=== PATIENT | female | born 1990 | race Caucasian/White ===

== ENCOUNTER 2017-05-18 04:47 | Inpatient (IN) | payer OTHER ==
[2017-05-18] VITALS (11 sets, daily range): BP systolic 108–155; BP diastolic 77–126
[~2017-05-18] VITALS: Ht 165.1 cm; Wt 64.0 kg
[2017-05-18] MEDS ORDERED: ondansetron/PF 4mg/2ml inj IV ONE (05:00)
[2017-05-18] MEDS ORDERED: HYDROmorphone inj. 0.5 MG/0.5 ML DISP.SYRIN IV PRN (05:00)
[2017-05-18] MEDS ORDERED: normal saline 1000ML IV soln IVB ONE ×2 (05:00→08:05)
[2017-05-18] MEDS ORDERED: morphine 4 MG/ML inj SYRINge IV ONE (05:05)
[2017-05-18 05:43] LABS: BASOPHILS # (AUTO) 0.1 X10'3 (0-0.2); BASOPHILS % (AUTO) 0.4 % (0-1); EOSINOPHILS # (AUTO) 0.3 X10'3 (0-0.9); EOSINOPHILS % (AUTO) 2.1 % (0-6); HEMATOCRIT 37.3 % (35.0-45.0); HEMOGLOBIN 13.4 g/dl (12.0-16.0); LYMPHOCYTES # (AUTO) 0.8 X10'3 (1.1-4.8); LYMPHOCYTES % (AUTO) 6.3 % (21-51); MEAN CORPUSCULAR HEMOGLOBIN 32.9 PG (27.0-31.0); MEAN CORPUSCULAR HGB CONC 35.8 % (33.0-36.5); MEAN PLATELET VOLUME 8.6 FL (7.4-10.4); MONOCYTES # (AUTO) 0.7 X10'3 (0-0.9); MONOCYTES % (AUTO) 5.3 % (2-12); NEUTROPHILS # (AUTO) 11.3 X10'3 (1.8-7.7); NEUTROPHILS % (AUTO) 85.9 % (42-75); PLATELET COUNT 194 X10'3 (140-440); RED BLOOD COUNT 4.05 X10'6 (4.20-5.60); RED CELL DISTRIBUTION WIDTH 12.6 % (11.5-14.5); WHITE BLOOD COUNT 13.2 X10'3 (4.5-11.0)
[2017-05-18 05:51] LABS: CLARITY,URINE SLIGHTLY CLOUDY (Clear); COLOR,URINE YELLOW (Yellow); GLUCOSE, URINE NEGATIVE (Neg); KETONES,URINE 40 mg/dl (Neg); LEUKOCYTE ESTERASE ,URINE NEGATIVE (Neg); NITRITES, URINE NEGATIVE (Neg); OCCULT BLOOD,URINE NEGATIVE (Neg); PH,URINE 6.5 (4.8-8.0); PROTEIN,URINE 30 mg/dl (Neg)
[2017-05-18 05:55] LABS: UA COLLECTION TYPE CLN CATCH MIDSTREAM
[2017-05-18 06:00] LABS: BACTERIA,URINE 2+ /HPF (Neg); MUCUS STRANDS FEW /LPF (Neg); RBC,URINE NONE SEEN /HPF (0-2); SQUAMOUS EPITHELIAL CELL,UR MANY /LPF (FEW); WBC,URINE 0-4 /HPF (0-4)
[2017-05-18 06:00] LABS: ALANINE AMINOTRANSFERASE 26 U/L (12-78); ALBUMIN 3.7 G/DL (3.4-5.0); ALBUMIN/GLOBULIN RATIO 0.9 (1.1-1.5); ALKALINE PHOSPHATASE 47 IU/L (46-116); ANION GAP 11 (8-16); ASPARTATE AMINO TRANSFERASE 19 U/L (10-37); BLOOD UREA NITROGEN 14 MG/DL (7-18); BUN/CREATININE RATIO 15.4 (6.6-38.0); CALCIUM 8.8 MG/DL (8.5-10.1); CHLORIDE 101 MMOL/L (99-107); CREATININE 0.91 MG/DL (0.40-0.90); GLUCOSE 122 MG/DL (70-104); LIPASE 132 U/L (73-393); POTASSIUM 3.7 MMOL/L (3.5-5.1); SODIUM 136 MMOL/L (135-145); TOTAL CARBON DIOXIDE 24.4 MMOL/L (24-32); TOTAL PROTEIN 7.8 G/DL (6.4-8.2); eGFR 75 ML/MIN
[2017-05-18 06:10] LABS: HCG SERUM QL NEGATIVE
[2017-05-18] MEDS ORDERED: iohexol 300mg/ml 100ml inj. ONE ×3 (06:26→06:39)
[2017-05-18] MEDS ORDERED: piperacillin/tazo 3.375gm/50ml 50 ML IV ONE (07:50)
[2017-05-18] MEDS ORDERED: normal saline 1000ml 1,000 ML IV ONE (08:02)
[2017-05-18] MEDS ORDERED: LORazepam 2 mg/ml vial IV ONE (10:40)
[2017-05-18] MEDS: morphine 4 MG/ML inj SYRINge IV PRN ×4 (10:59→19:38)
[2017-05-18] MEDS: piperacillin/tazo 3.375gm/50ml 50 ML IV SCH ×2 (15:07→23:22)
[2017-05-18] MEDS ORDERED: BUPIVAcaine/PF 2.5 mg/ml (0.25%) 30ml vial ONE (16:01)
[2017-05-18] MEDS ORDERED: LIDOcaine 1% 30ml preserv. free vial ONE (16:01)
[2017-05-18] MEDS ORDERED: ringers solution, lacted 1,000 ML IV SCH (18:46)
[2017-05-18] MEDS ORDERED: meperidine/PF 50mg/ml syringe IV PRN ×3 (18:50)
[2017-05-18] MEDS ORDERED: acetaminophen 1,000mg/100ml IV 100 ML IV PRN (18:50)
[2017-05-18] MEDS ORDERED: proCHLORperazine 10 MG/2 ml inj IV PRN (18:50)
[2017-05-18] MEDS ORDERED: morphine 4 MG/ML inj SYRINge IV PRN ×3 (18:50→23:15)
[2017-05-18] MEDS ORDERED: ondansetron/PF 4mg/2ml inj IV PRN (18:50)
[2017-05-18] MEDS ORDERED: fentaNYL/PF 50MCG/1 ML 2ML syringe ONE (19:30)
[2017-05-18] MEDS ORDERED: midazolam 2 mg/2 ml injection ONE (19:30)
[2017-05-18] MEDS ORDERED: propofol inj 20 ML IV ONE (19:33)
[2017-05-18] MEDS ORDERED: rocuronium 10mg/ml inj IV ONE (19:33)
[2017-05-18] MEDS ORDERED: LIDOcaine 2% 5ml jelly ONE (19:33)
[2017-05-18] MEDS ORDERED: desflurane 240ml liquid inh. IH ONE (19:45)
[2017-05-18] MEDS ORDERED: ceFOXitin 1000 MG inj ONE ×2 (20:10)
[2017-05-18] MEDS ORDERED: dexamethasone sod phosphate 4mg/ml inj. ONE (20:10)
[2017-05-18] MEDS ORDERED: ondansetron/PF 4mg/2ml inj ONE (20:10)
[2017-05-18] MEDS ORDERED: neostigmine methylsulfate 1 MG/ML 10ml vial ONE (20:50)
[2017-05-18] MEDS ORDERED: glycopyrrolate 0.2mg/ml inj ONE (20:50)
[2017-05-18] MEDS: ondansetron/PF 4mg/2ml inj IV PRN (21:43)
[2017-05-18] MEDS ORDERED: proMETHazine 25mg rectal suppository RC ONE (23:10)
[2017-05-19 00:15] VITALS: BP 144/71
[2017-05-19] MEDS: HYDROcodone/acetaminophen 5mg/325mg tablet PO PRN ×4 (00:19→21:49)
[2017-05-19] MEDS ORDERED: CIPR500T24 PO (00:33)
[2017-05-19 01:15] VITALS: BP 144/82
[2017-05-19 01:30] VITALS: BP 144/82
[2017-05-19] MEDS: piperacillin/tazo 3.375gm/50ml 50 ML IV SCH ×3 (02:00→15:01)
[2017-05-19] MEDS: ondansetron/PF 4mg/2ml inj IV PRN (05:33)
[2017-05-19 07:00] VITALS: BP 125/69
[2017-05-19 11:00] VITALS: BP 105/59
[2017-05-19] MEDS ORDERED: amox tr/potassium clavulanate 875/125mg TAB PO SCH (17:30)
[2017-05-19 19:00] VITALS: BP 110/55
[2017-05-19] MEDS ORDERED: HYDR-569 PO (19:31)
== END 2017-05-19 22:20 | disposition home or self-care (01) | DRG 343 ==
LOC: ER 04:47 → ED HOLD 10:38 → SUR 3N 20:03
PROVIDERS: ADMIT Nurse Practitioner Family; ATTEND Nurse Practitioner Family
PROC: BW211ZZ Computerized Tomography (CT Scan) of Abdomen and Pelvis using Low Osmolar Contrast (ICD-10-PCS; 2017-05-18)
PROC: 0DTJ4ZZ Resection of Appendix, Percutaneous Endoscopic Approach (ICD-10-PCS; principal; 2017-05-18 19:45)
DX: K35.80 Unspecified acute appendicitis (principal); R16.0 Hepatomegaly, not elsewhere classified; F41.9 Anxiety disorder, unspecified; Z88.5 Allergy status to narcotic agent
CPT/HCPCS: 96361; 96365; 96375; 99285; Z7506; 36415; 74177; 80053; 81001; 83690; 84703; 85025; 87070; 93005; A7000; J0131; J0694; J1100; J2060; J2250; J2270; J2405; J2543; J2704; J2710; J3010; J3490; J7030; J7120; Q9967

== ENCOUNTER 2022-12-29 12:36 | Emergency (ER) | payer MEDICAID, OTHER ==
[~2022-12-29] VITALS: Ht 162.6 cm; Wt 64.2 kg
[~2022-12-29 12:36] MED LIST: HYDR-4383 PO
[2022-12-29 14:08] LABS: URINE HCG NEGATIVE (NEG)
[2022-12-29 14:10] LABS: BILIRUBIN,URINE NEGATIVE (Neg); CLARITY,URINE CLEAR (Clear); COLOR,URINE STRAW (Yellow); GLUCOSE, URINE NEGATIVE (Neg); KETONES,URINE NEGATIVE (Neg); LEUKOCYTE ESTERASE ,URINE NEGATIVE (Neg); NITRITES, URINE NEGATIVE (Neg); OCCULT BLOOD,URINE SMALL (Neg); PROTEIN,URINE NEGATIVE (Neg); UROBILINOGEN,URINE 0.2 E.U/dL (0.2-1.0)
[2022-12-29 14:13] LABS: UA COLLECTION TYPE CLN CATCH MIDSTREAM
[2022-12-29 14:15] LABS: URINE AMPHETAMINE SCREEN NEGATIVE (Neg); URINE BARBITUATE SCREEN NEGATIVE (Neg); URINE BENZODIAZEPINES SCREEN NEGATIVE (Neg); URINE CANNABINOID SCREEN NEGATIVE (Neg); URINE COCAINE SCREEN NEGATIVE (Neg); URINE METHADONE SCREEN NEGATIVE (Neg); URINE OPIATE SCREEN NEGATIVE (Neg); URINE PHENCYCLIDINE SCREEN NEGATIVE (Neg)
[2022-12-29 14:17] LABS: BACTERIA,URINE NONE SEEN /HPF (Neg); SQUAMOUS EPITHELIAL CELL,UR FEW /LPF (FEW)
[2022-12-29 14:18] LABS: BASOPHILS % (AUTO) 0.3 % (0-1); EOSINOPHILS % (AUTO) 0.2 % (0-6); HEMATOCRIT 37.6 % (35.0-45.0); HEMOGLOBIN 12.8 g/dl (12.0-16.0); LYMPHOCYTES # (AUTO) 0.8 X10'3 (1.1-4.8); LYMPHOCYTES % (AUTO) 13.6 % (21-51); MEAN CORPUSCULAR HEMOGLOBIN 34.2 PG (27.0-31.0); MEAN CORPUSCULAR HGB CONC 34.2 g/dL (33.0-36.5); MEAN CORPUSCULAR VOLUME 100.1 FL (78-98); MEAN PLATELET VOLUME 8.7 FL (7.4-10.4); MONOCYTES # (AUTO) 0.2 X10'3 (0-0.9); MONOCYTES % (AUTO) 3.8 % (2-12); NEUTROPHILS # (AUTO) 4.7 X10'3 (1.8-7.7); NEUTROPHILS % (AUTO) 82.1 % (42-75); PLATELET COUNT 74 X10'3 (140-440); RED BLOOD COUNT 3.76 X10'6 (4.20-5.60); RED CELL DISTRIBUTION WIDTH 12.8 % (11.5-14.5); WHITE BLOOD COUNT 5.7 X10'3 (4.5-11.0)
[2022-12-29 14:18] LABS: RBC,URINE 0-2 /HPF (0-2); WBC,URINE 0-4 /HPF (0-4)
[2022-12-29 14:36] LABS: ALANINE AMINOTRANSFERASE 79 U/L (12-78); ALBUMIN 3.9 G/DL (3.4-5.0); ALBUMIN/GLOBULIN RATIO 1.1 (1.1-1.5); ALKALINE PHOSPHATASE 56 IU/L (46-116); ANION GAP 12 (8-16); ASPARTATE AMINO TRANSFERASE 87 U/L (10-37); BILIRUBIN,TOTAL 1.2 MG/DL (0.1-1.0); BLOOD UREA NITROGEN 5 MG/DL (7-18); BUN/CREATININE RATIO 7.4 (10.0-20.0); CALCIUM 8.7 MG/DL (8.5-10.1); CHLORIDE 101 MMOL/L (99-107); CREATININE 0.68 MG/DL (0.40-0.90); GLUCOSE 86 MG/DL (70-104); POTASSIUM 3.6 MMOL/L (3.5-5.1); SODIUM 138 MMOL/L (135-145); TOTAL CARBON DIOXIDE 25.1 MMOL/L (24-32); TOTAL PROTEIN 7.3 G/DL (6.4-8.2); eCRCL 103 ML/MIN; eGFR > 90 ML/MIN
[2022-12-29] MEDS ORDERED: acetaminophen 325mg tablet PO ONE (14:55)
[2022-12-29] MEDS ORDERED: ibuprofen tablet 400 MG TABLET PO ONE (15:05)
[2022-12-29 16:22] VITALS: BP 160/76; PULSE 88; TEMP 97.8; O2SAT 100
[2022-12-29 16:25] VITALS: RESP 18
--- NOTE | 2022-12-29 17:51 | NUR ---
MENDING CARRIER ASSESSMENT REVIEWED AND APPROVED BY DEANN CRUZ.
== END 2022-12-29 16:29 | disposition home or self-care (01) ==
LOC: ER 12:36
DX: F32.A Depression, unspecified (principal)
CPT/HCPCS: 36415; 80053; 80305; 81001; 81025; 85025; 99283

== ENCOUNTER 2023-04-10 17:49 | Emergency (ER) | payer MEDICAID ==
[~2023-04-10] VITALS: Ht 162.6 cm; Wt 61.4 kg
[2023-04-10 17:51] VITALS: BP 150/95; PULSE 78; RESP 18; TEMP 97.7; O2SAT 100
[2023-04-10] MEDS: TETanus/Pertussis (Acell)/Diphther VAC/PF (Tdap-Adult) 0.5ml syringe IMVAC ONE (18:53)
[2023-04-10] MEDS: LIDOcaine 1%/PF 5ML 10 MG/ML VIAL SQ ONE (18:54)
== END 2023-04-10 20:22 | disposition home or self-care (01) ==
LOC: ER 17:50
DX: S00.431A Contusion of right ear, initial encounter (principal); Z88.5 Allergy status to narcotic agent; Z79.899 Other long term (current) drug therapy; W50.0XXA Accidental hit or strike by another person, initial encounter; Y93.89 Activity, other specified; Y92.89 Other specified places as the place of occurrence of the external cause; Y99.8 Other external cause status
CPT/HCPCS: 69000; 90471; 90715; 99283; A6449